=== PATIENT | female | born 1935 | race Caucasian/White ===

== ENCOUNTER 2016-04-14 14:46 | Inpatient (IN) | payer MEDICARE, OTHER ==
--- NOTE | 2016-04-14 15:04 | ER Document Report ---
ED Medical Screen (RME) - General Stated Complaint: BACK/HEAD PAIN FALL Notes: 80 yo female c/o fall, head injury. fell at home. does not remember fall. unsure of mechanism of injury. 10am last known normal. pt is confused today. abrasion to right forehead. denies other injury TRAVEL OUTSIDE OF THE [place] IN LAST 30 DAYS: No - Related Data Allergies/Adverse Reactions: No Known Allergies Allergy (Verified 03/08/16 13:09) Past Medical History - Past Medical History Cardiac Medical History: Reports: Hx Hypercholesterolemia, Hx Hypertension Pulmonary Medical History: Reports: Hx Asthma, Hx COPD Endocrine Medical History: Reports: Hx Hypothyroidism Musculoskeltal Medical History: Reports Hx Arthritis Past Surgical History: Reports: Hx Abdominal Surgery, Hx Appendectomy, Hx Lumpectomy - left breast, Hx Orthopedic Surgery - back surgery x4 - Immunizations Hx Diphtheria, Pertussis, Tetanus Vaccination: Yes
[2016-04-14 17:33] LABS: ABSOLUTE EOSINOPHILS # (AUTO) 0.1 10^3/uL (0.0-0.6); ABSOLUTE LYMPHOCYTES (AUTO) 1.1 10^3/uL (0.5-4.7); ABSOLUTE MONOCYTES (AUTO) 0.7 10^3/uL (0.1-1.4); ABSOLUTE NEUT (AUTO) 7.2 10^3/uL (1.7-8.2); BASOPHILS % (AUTO) 0.2 % (0-2); HEMATOCRIT 35.9 % (36.0-47.0); HGB HCT DIFFERENCE 0.1; LYMPHOCYTES % (AUTO) 12.5 % (13-45); MEAN CORPUSCULAR HEMOGLOBIN 30.1 pg (27.0-33.4); MEAN CORPUSCULAR HGB CONC 33.3 g/dL (32.0-36.0); MEAN CORPUSCULAR VOLUME 90 fl (80-97); MONOCYTES % (AUTO) 7.4 % (3-13); RED BLOOD COUNT 3.98 10^6/uL (3.72-5.28); RED CELL DISTRIBUTION WIDTH 15.7 % (11.5-14.0); SEGMENTED NEUTROPHILS % (AUTO) 78.9 % (42-78); WHITE BLOOD COUNT 9.2 10^3/uL (4.0-10.5)
[2016-04-14 17:52] LABS: ALANINE AMINOTRANSFERASE 32 U/L (9-52); ALBUMIN 3.9 g/dL (3.5-5.0); ALKALINE PHOSPHATASE 91 U/L (38-126); ANION GAP 10 (5-19); ASPARTATE AMINO TRANSFERASE 48 U/L (14-36); BILIRUBIN,TOTAL 0.6 mg/dL (0.2-1.3); BLOOD UREA NITROGEN 26 mg/dL (7-20); CALCIUM 10.1 mg/dL (8.4-10.2); CARBON DIOXIDE 30 mmol/L (22-30); CHLORIDE 103 mmol/L (98-107); CREATINE KINASE 1047 U/L (30-135); CREATININE RESULT 1.37 mg/dL (0.52-1.25); GLUCOSE 104 mg/dL (75-110); POTASSIUM 4.1 mmol/L (3.6-5.0); SODIUM 143.2 mmol/L (137-145); TOTAL PROTEIN 7.5 g/dL (6.3-8.2)
[2016-04-14 17:57] LABS: CREATINE KINASE MB 11.5 ng/mL (<4.55); TROPONIN I 0.024 ng/mL
[2016-04-14 19:25] LABS: APPEARANCE,URINE SLIGHTLY-CLOUDY; BILIRUBIN,URINE NEGATIVE (NEGATIVE); GLUCOSE, URINE NEGATIVE (NEGATIVE); KETONES,URINE NEGATIVE (NEGATIVE); LEUKOCYTE ESTERASE,URINE SMALL (NEGATIVE); NITRITE,URINE NEGATIVE (NEGATIVE); PROTEIN,URINE 30 mg/dL (NEGATIVE); URINE SPECIFIC GRAVITY 1.011; UROBILINOGEN,URINE NEGATIVE mg/dL (<2.0)
--- NOTE | 2016-04-14 19:45 | ER Document Report ---
ED Fall - General Chief Complaint: Head Injury Stated Complaint: BACK/HEAD PAIN FALL Time seen by provider: 19:40 Notes: Patient is a 80-year-old female that comes emergency department for chief complaint of fall, patient does not remember falling, she remembers getting up off the floor and having a small amount of blood on her face/forehead. Family member reports that a 10 AM she was reported to be okay, at 1:30 PM an casting assistant called and reported she had fallen. Patient states she has general body pain but denies any new pains, she is treated with pain management for chronic back pain including 4 mg of Dilaudid multiple times a day. She denies specific chest pain or shortness of breath. She denies fevers. She is not on a blood thinner. She denies history of stroke, heart attack. Patient smokes, has COPD, hypertension, hyperlipidemia. Patient lives with her son. TRAVEL OUTSIDE OF THE [place] IN LAST 30 DAYS: No - Related data Allergies/Adverse Reactions: No Known Allergies Allergy (Verified 04/14/16 15:09) Home Medications: Current Home Medications Aspirin/Dipyridamole [Aggrenox 25 mg-200 mg Capsule] 1 cap PO Q12 04/14/16 [ History] Baclofen [Baclofen 10 mg Tablet] 10 mg PO Q8 04/14/16 [History] Cyclobenzaprine HCl [Flexeril 10 mg Tablet] 5 mg PO Q8HP PRN 04/14/16 [History] Doxepin HCl [Silenor] 3 mg PO QHS 04/14/16 [History] Hydrochlorothiazide [Hydrodiuril 12.5 mg Capsule] 12.5 mg PO DAILY 04/14/16 [ History] Hydromorphone HCl [Dilaudid] 4 mg PO Q6HP PRN 04/14/16 [History] Lactulose [Constulose 10 gm/15 mL Oral Solution] 30 ml PO QHS 04/14/16 [History] Levothyroxine Sodium [Synthroid 0.15 mg Tablet] 150 mcg PO DAILY 04/14/16 [ History] Lisinopril [Prinivil 10 mg Tablet] 10 mg PO Q12 04/14/16 [History] Nifedipine [Nifedipine ER] 30 mg PO Q12 04/14/16 [History] Thiamine HCl [Vitamin B-1] 100 mg PO DAILY 04/14/16 [History] Past Medical History - General Information source: Patient, Relative - Social History Smoking Status: Current Every Day Smoker Chew tobacco use (# tins/day): No Frequency of alcohol use: None Drug Abuse: None Lives with: Family Family History: None Patient has suicidal ideation: No Patient has homicidal ideation: No - Past Medical History Cardiac Medical History: Reports: Hx Hypercholesterolemia, Hx Hypertension Pulmonary Medical History: Reports: Hx Asthma, Hx COPD Endocrine Medical History: Reports: Hx Hypothyroidism Renal/ Medical History: Denies: Hx Peritoneal Dialysis Musculoskeltal Medical History: Reports Hx Arthritis Past Surgical History: Reports: Hx Abdominal Surgery, Hx Appendectomy, Hx Lumpectomy - left breast, Hx Orthopedic Surgery - back surgery x4 - Immunizations Hx Diphtheria, Pertussis, Tetanus Vaccination: Yes Review of Systems - Review of Systems Constitutional: No symptoms reported EENT: No symptoms reported Cardiovascular: See HPI Respiratory: No symptoms reported Gastrointestinal: No symptoms reported Genitourinary: No symptoms reported Female Genitourinary: No symptoms reported Musculoskeletal: See HPI Skin: See HPI Hematologic/Lymphatic: No symptoms reported Neurological/Psychological: See HPI Physical Exam - Vital signs Vitals: Temp Pulse Resp BP Pulse Ox 98.8 F 110 H 20 153/77 H 96 04/14/16 15:01 04/14/16 15:01 04/14/16 15:01 04/14/16 15:01 04/14/16 15:01 Interpretation: Normal - General General appearance: Appears well, Alert. No: Lethargic, Unresponsive In distress: None - HEENT Head: Ecchymosis - right forehead and superior eyelid contusions Eyes: Normal Conjunctiva: Normal Extraocular movements intact: Yes Eyelashes: Normal Pupils: PERRL Nasal: Normal Mouth/Lips: Normal Mucous membranes: Normal Pharynx: Normal Neck: Normal - Respiratory Respiratory status: No respiratory distress Chest status: Nontender Breath sounds: Normal. No: Decreased air movement, Wheezing Chest palpation: Normal - Cardiovascular Rhythm: Regular, Tachycardia Heart sounds: Normal auscultation, S1 appreciated, S2 appreciated Murmur: No - Abdominal Inspection: Normal Distension: No distension Bowel sounds: Normal Tenderness: Nontender Organomegaly: No organomegaly - Back Back: Normal, Nontender. No: Tender, Vertebra tenderness - Extremities General upper extremity: Normal inspection, Nontender, Normal ROM, Normal strength General lower extremity: Normal inspection, Nontender, Normal ROM, Normal strength - Neurological Neuro grossly intact: Yes Cognition: Normal Orientation: AAOx4 Joshua Coma Scale Eye Opening: Spontaneous Joshua Coma Scale Verbal: Oriented Joshua Coma Scale Motor: Obeys Commands Cheyanne Coma Scale Total: 15 Speech: Normal Cranial nerves: Normal Cerebellar coordination: Gait ataxia. 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 Patient has a hematoma/contusion on her right forehead, no other signs of injury, no neck pain. Creatinine and GFR are abnormal, not in patient's baseline, CK is also elevated , giving IV fluids. Urine shows white blood cells, leukocyte esterase, patient denies any urinary symptoms, culture placed. Patient mildly tachycardic, could be from opiate withdrawals, she is on high doses and she has not had any since this morning. CT of the head shows hematoma and old lacunar, infarct. Other than unsteadiness on her feet I do not see any neurological deficits on examination. Will discuss for potential admission for workup of possible stroke, unsteadiness on her feet, acute renal insufficiency, suspected rhabdomyolysis. Discussed with Dr. Goldsmith. Discussed with Dr. Reynoso, he will admit to the hospital. - Vital Signs Vital signs: Temp Pulse Resp BP Pulse Ox 98.4 F 81 20 139/68 H 99 04/15/16 04:31 04/15/16 04:31 04/15/16 04:31 04/15/16 04:31 04/15/16 04:31 - Laboratory Result Diagrams: 04/14/16 16:45 04/14/16 16:45 Laboratory results interpreted by me: 04/14/16 04/14/16 04/14/16 16:45 16:45 16:45 Hct 35.9 L RDW 15.7 H Seg Neutrophils % 78.9 H Lymphocytes % 12.5 L BUN 26 H Creatinine 1.37 H Est GFR ( Amer) 45 L Est GFR (Non-Af Amer) 37 L AST 48 H Creatine Kinase 1047 H CK-MB (CK-2) 11.50 H Urine Protein Urine Blood Ur Leukocyte Esterase 04/14/16 18:10 Hct RDW Seg Neutrophils % Lymphocytes % BUN Creatinine Est GFR ( Amer) Est GFR (Non-Af Amer) AST Creatine Kinase CK-MB (CK-2) Urine Protein 30 H Urine Blood MODERATE H Ur Leukocyte Esterase SMALL H Discharge - Discharge Clinical Impression: Imbalance, Elevated creatine kinase, Acute renal insufficiency, Thalamic infarction Fall Qualifiers: Encounter type: initial encounter Qualified Code(s): W19.XXXA - Unspecified fall, initial encounter Scalp hematoma Qualifiers: Encounter type: initial encounter Qualified Code(s): S00.03XA - Contusion of scalp, initial encounter Condition: Stable Disposition: ADMITTED INPATIENT Admitting Provider: Hospitalist - Dr. Reynoso Unit Admitted: Telemetry
[2016-04-14] MEDS ORDERED: NORMAL SALINE 1000 ML 1,000 ML IV ONE (19:47)
[2016-04-14] MEDS ORDERED: OXYCODONE-ACETAMINOPHEN 5-325 MG TABLET PO PRN (20:00)
[2016-04-14] MEDS ORDERED: CYCLOBENZAPRINE HCL 10 MG TABLET PO PRN (20:00)
[2016-04-14] MEDS ORDERED: HYDROMORPHONE HCL 2 MG TABLET PO PRN (20:02)
[2016-04-14] MEDS ORDERED: ATORVASTATIN CALCIUM 80 MG TABLET PO ONE (20:02)
[2016-04-14] MEDS ORDERED: DOCUSATE SODIUM 100 MG CAPSULE PO PRN (20:02)
[2016-04-14] MEDS ORDERED: MAGNESIUM HYDROXIDE SUSP 30 ML UDCUP PO PRN (20:02)
[2016-04-14] MEDS ORDERED: IPRATROPIUM/ALBUTEROL 0.5-2.5 MG/3 ML AMPUL NEB PRN (20:08)
[2016-04-14] MEDS ORDERED: HYDRALAZINE HCL INJ/PF 20 MG/1 ML SDV IV PRN (20:08)
[2016-04-14] MEDS ORDERED: BACLOFEN 10 MG TABLET PO PRN (21:57)
[2016-04-14] MEDS ORDERED: LORAZEPAM INJ 2 MG/1 ML VIAL IV ONE (23:21)
[2016-04-14] MEDS ORDERED: LORAZEPAM INJ 2 MG/1 ML VIAL ONE (23:59)
[2016-04-15] MEDS: NIFEDIPINE 30 MG TAB.ER.24 PO SCH ×3 (00:08→22:21)
[2016-04-15] MEDS: ASPIRIN/DIPYRIDAMOLE 25-200 MG 1 CAP.SR CPMP.12HR PO SCH ×3 (00:08→22:19)
[2016-04-15] MEDS: LISINOPRIL 10 MG TABLET PO SCH ×3 (00:09→22:20)
[2016-04-15] MEDS: HEPARIN SOD (PORCINE) 5,000 UNIT/ML 1 ML SYRINGE SUBCUT SCH ×3 (00:13→14:16)
[2016-04-15] MEDS: LACTULOSE SYRUP 20 GM/30 ML UDCUP PO SCH ×2 (00:14→22:21)
[2016-04-15 00:53] LABS: CREATINE KINASE MB 5.59 ng/mL (<4.55); TROPONIN I 0.018 ng/mL
[2016-04-15] MEDS: NORMAL SALINE 1000 ML 1,000 ML IV SCH ×2 (00:58→05:37)
[2016-04-15] MEDS ORDERED: ATORVASTATIN CALCIUM 80 MG TABLET PO ONE (01:30)
[2016-04-15] MEDS: LANSOPRAZOLE 30 MG TAB.RAP.DR PO SCH ×2 (05:44→18:03)
[2016-04-15] MEDS: LEVOTHYROXINE SODIUM 0.15 MG TABLET PO SCH (05:44)
[2016-04-15] MEDS ORDERED: OXYCODONE-ACETAMINOPHEN 5-325 MG TABLET PO PRN (07:07)
[2016-04-15] MEDS ORDERED: HYDROMORPHONE HCL 2 MG TABLET PO PRN (07:08)
[2016-04-15 07:17] LABS: ABSOLUTE EOSINOPHILS # (AUTO) 0.1 10^3/uL (0.0-0.6); ABSOLUTE LYMPHOCYTES (AUTO) 1.1 10^3/uL (0.5-4.7); ABSOLUTE MONOCYTES (AUTO) 0.5 10^3/uL (0.1-1.4); ABSOLUTE NEUT (AUTO) 4.7 10^3/uL (1.7-8.2); BASOPHILS % (AUTO) 0.7 % (0-2); EOSINOPHILS % (AUTO) 1.4 % (0-6); HEMATOCRIT 31.6 % (36.0-47.0); HEMOGLOBIN 10.7 g/dL (12.0-15.5); HGB HCT DIFFERENCE 0.5; LYMPHOCYTES % (AUTO) 17.7 % (13-45); MEAN CORPUSCULAR HEMOGLOBIN 30.8 pg (27.0-33.4); MEAN CORPUSCULAR HGB CONC 33.7 g/dL (32.0-36.0); MEAN CORPUSCULAR VOLUME 91 fl (80-97); MONOCYTES % (AUTO) 6.9 % (3-13); RED BLOOD COUNT 3.46 10^6/uL (3.72-5.28); RED CELL DISTRIBUTION WIDTH 15.7 % (11.5-14.0); SEGMENTED NEUTROPHILS % (AUTO) 73.3 % (42-78); WHITE BLOOD COUNT 6.5 10^3/uL (4.0-10.5)
--- NOTE | 2016-04-15 07:35 | PDOC H&P ---
History of Present Illness Admission Date/PCP: 04/14/16 20:03 NO LOCALMD Patient complains of: Fall History of Present Illness: AR IBANEZ is a 80 year old female with a past medical history of COPD, hypertension chronic pain and adjustment disorder following the of her spouse 2 weeks ago. Who had been her usual state of health until approximately 10:30 AM sustained a fall to the floor at home. Patient is not recall the event denies preceding headache palpitations chest pain or shortness of breath though had recently taken her home medications which include doxepin baclofen Flexeril and Dilaudid 4 mg every 4 hours when necessary. In the emergency room she's found to have a large right sided facial ecchymosis with scalp hematoma without laceration, CT shows a small left-sided old lacunar infarct, and rhabdomyolysis. She's referred to the hospitalist for admission Past Medical History Cardiac Medical History: Reports: Hyperlipidema, Hypertension Pulmonary Medical History: Reports: Asthma, Chronic Obstructive Pulmonary Disease (COPD) Endocrine Medical History: Reports: Hypothyroidism Musculoskeltal Medical History: Reports: Arthritis Psychiatric Medical History: Reports: Other - Adjustment disorder with grief Past Surgical History Past Surgical History: Reports: Appendectomy, Orthopedic Surgery - back surgery x4 Social History Information Source: Patient, Relative Lives with: Family Smoking Status: Current Every Day Smoker Cigarettes Packs Per Day: 2 Frequency of Alcohol Use: None Hx Recreational Drug Use: No Drugs: None Hx Prescription Drug Abuse: No - Advance Directive Resuscitation Status: Full Code Family History Family History: COPD Parental Family History Reviewed: Yes Children Family History Reviewed: Yes Sibling(s) Family History Reviewed.: Yes Medication/Allergy Home Medications: Aspirin/Dipyridamole [Aggrenox 25 mg-200 mg Capsule] 1 cap PO Q12 04/14/16 Baclofen [Baclofen 10 mg Tablet] 10 mg PO Q8 04/14/16 Cyclobenzaprine HCl [Flexeril 10 mg Tablet] 5 mg PO Q8HP PRN 04/14/16 Doxepin HCl [Silenor] 3 mg PO QHS 04/14/16 Hydrochlorothiazide [Hydrodiuril 12.5 mg Capsule] 12.5 mg PO DAILY 04/14/16 Hydromorphone HCl [Dilaudid] 4 mg PO Q6HP PRN 04/14/16 Lactulose [Constulose 10 gm/15 mL Oral Solution] 30 ml PO QHS 04/14/16 Levothyroxine Sodium [Synthroid 0.15 mg Tablet] 150 mcg PO DAILY 04/14/16 Lisinopril [Prinivil 10 mg Tablet] 10 mg PO Q12 04/14/16 Nifedipine [Nifedipine ER] 30 mg PO Q12 04/14/16 Thiamine HCl [Vitamin B-1] 100 mg PO DAILY 04/14/16 Allergies/Adverse Reactions: No Known Allergies Allergy (Verified 04/14/16 15:09) Review of Systems Constitutional: ABSENT: chills, fever(s), headache(s), weight gain, weight loss Eyes: ABSENT: visual disturbances Ears: ABSENT: hearing changes Cardiovascular: ABSENT: chest pain, dyspnea on exertion, edema, orthropnea, palpitations Respiratory: ABSENT: cough, hemoptysis Gastrointestinal: ABSENT: abdominal pain, constipation, diarrhea, hematemesis, hematochezia, nausea, vomiting Genitourinary: ABSENT: dysuria, hematuria Musculoskeletal: ABSENT: joint swelling Integumentary: ABSENT: rash, wounds Neurological: ABSENT: abnormal gait, abnormal speech, confusion, dizziness, focal weakness, syncope Psychiatric: PRESENT: anxiety, depression. ABSENT: homidical ideation, suicidal ideation Endocrine: ABSENT: cold intolerance, heat intolerance, polydipsia, polyuria Hematologic/Lymphatic: ABSENT: easy bleeding, easy bruising Physical Exam Vital Signs: Temp Pulse Resp BP Pulse Ox 98.4 F 81 20 139/68 H 99 04/15/16 04:31 04/15/16 04:31 04/15/16 04:31 04/15/16 04:31 04/15/16 04:31 Intake & Output 04/13/16 04/14/16 04/15/16 11:59 11:59 11:59 Intake Total 1400 Output Total 100 Balance 1300 Weight 44.8 kg General appearance: PRESENT: cooperative, disheveled, thin Head exam: PRESENT: normocephalic, other - Large right scalp hematoma with right -sided facial and periorbital ecchymosis. ABSENT: atraumatic Eye exam: PRESENT: conjunctiva pink, EOMI, PERRLA. ABSENT: scleral icterus Mouth exam: PRESENT: moist, tongue midline Neck exam: ABSENT: carotid bruit, JVD, lymphadenopathy, thyromegaly Respiratory exam: PRESENT: clear to auscultation subha. ABSENT: rales, rhonchi, wheezes Cardiovascular exam: PRESENT: RRR. ABSENT: diastolic murmur, rubs, systolic murmur Pulses: PRESENT: normal dorsalis pedis pul Vascular exam: PRESENT: normal capillary refill GI/Abdominal exam: PRESENT: hypoactive bowel sounds, soft. ABSENT: distended, guarding, mass, normal bowel sounds, organolmegaly, rebound, tenderness Rectal exam: PRESENT: deferred Extremities exam: PRESENT: full ROM. ABSENT: calf tenderness, clubbing, pedal edema Neurological exam: PRESENT: alert, altered Psychiatric exam: PRESENT: depressed, unusual affect. ABSENT: homicidal ideation, suicidal ideation Focused psych exam: ABSENT: catatonic, delusional, euphoric, flight of ideas Skin exam: PRESENT: other - Right-sided scalp hematoma right periorbital and facial ecchymosis Results Laboratory Results: 04/15/16 04/15/16 00:16 00:16 Creatine Kinase 791 H CK-MB (CK-2) 5.59 H Troponin I 0.018 Impressions: Head CT 04/14/16 15:04 IMPRESSION: Right frontal scalp hematoma without underlying skull fracture or acute intracranial hemorrhage. 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 Head MRI 04/14/16 20:05 IMPRESSION: ATROPHY AND CHRONIC MICRO-VASCULAR ISCHEMIC CHANGES. OTHERWISE NORMAL MRI OF THE BRAIN WITHOUT INTRAVENOUS GADOLINIUM CONTRAST. Assessment & Plan - Diagnosis (1) Fall Qualifiers: Encounter type: initial encounter Qualified Code(s): W19.XXXA - Unspecified fall, initial encounter Plan: Likely secondary to polypharmacy however CT head imaging 1 month ago after a fall did not show old left lacunar infarct, she is placed on aspirin with Lipitor, orthostatic blood pressures and physical and occupational therapy consultation is ordered (2) Rhabdomyolysis Is this a current diagnosis for this admission?: YesPlan: Secondary to fall patient was positioned down for several hours she received gentle IV fluids reevaluation of total CK (3) Polypharmacy Is this a current diagnosis for this admission?: YesPlan: Patient with history of recent fall 1 month ago and multiple medications increasing risk including large dose of Dilaudid, doxepin with baclofen. Doxepin held Dilaudid weaning strongly suggested given recent spontaneous falls. - Time Time Spent: 50 to 70 Minutes
[2016-04-15 07:36] LABS: ANION GAP 9 (5-19); BLOOD UREA NITROGEN 20 mg/dL (7-20); CALCIUM 9.2 mg/dL (8.4-10.2); CARBON DIOXIDE 25 mmol/L (22-30); CHLORIDE 110 mmol/L (98-107); CHOLESTEROL 165.22 mg/dL (0-200); CREATININE RESULT 1.04 mg/dL (0.52-1.25); Direct HDL 41 mg/dL (>40); GLUCOSE 83 mg/dL (75-110); POTASSIUM 4.1 mmol/L (3.6-5.0); SODIUM 143.5 mmol/L (137-145); TRIGLYCERIDES 149 mg/dL (<150)
[2016-04-15 07:46] LABS: DIRECT LDL 94 mg/dL (<100)
[2016-04-15 07:48] LABS: CREATINE KINASE MB 3.69 ng/mL (<4.55); TROPONIN I 0.018 ng/mL
--- NOTE | 2016-04-15 11:22 | EKG REPORT ---
SEVERITY:- OTHERWISE NORMAL ECG - SINUS TACHYCARDIA VENTRICULAR PREMATURE COMPLEX : Confirmed by: Jenn Ta 15-Apr-2016 11:21:32
[2016-04-15 13:49] LABS: CREATINE KINASE MB 2.52 ng/mL (<4.55)
[2016-04-15 13:51] LABS: TROPONIN I < 0.012 ng/mL
[2016-04-15] MEDS: HYDROMORPHONE HCL 2 MG TABLET PO PRN ×2 (14:14→22:20)
--- NOTE | 2016-04-15 16:13 | PDOC PROGRESS REPORT ---
Subjective Progress Note for:: 04/15/16 Subjective:: Patient is alert awake complaining of dysuria She is a low-grade fever She has no chest pain no palpitations no headache lightheadedness Mentation is excellent She has large ecchymosis on the right periorbital area and right forehead Physical Exam Vital Signs: Temp Pulse Resp BP Pulse Ox 99.0 F 89 20 138/69 H 98 04/15/16 11:28 04/15/16 11:28 04/15/16 11:28 04/15/16 11:28 04/15/16 11:28 Intake & Output 04/14/16 04/15/16 04/16/16 00:59 00:59 00:59 Intake Total 0 1500 Output Total 100 0 Balance -100 1500 Weight 43.8 kg 44.8 kg General appearance: PRESENT: no acute distress Head exam: PRESENT: other - Ecchymosis right periorbital area ,right forehead Eye exam: PRESENT: conjunctiva pink, EOMI, PERRLA. ABSENT: scleral icterus Respiratory exam: PRESENT: clear to auscultation subha. ABSENT: rales, rhonchi, wheezes Cardiovascular exam: PRESENT: RRR. ABSENT: diastolic murmur, rubs, systolic murmur GI/Abdominal exam: PRESENT: normal bowel sounds, soft. ABSENT: distended, guarding, mass, organolmegaly, rebound, tenderness Extremities exam: PRESENT: full ROM. ABSENT: calf tenderness, clubbing, pedal edema Neurological exam: PRESENT: alert, awake, oriented to person, oriented to place , oriented to time, oriented to situation, CN II-XII grossly intact. ABSENT: motor sensory deficit Psychiatric exam: PRESENT: appropriate affect, normal mood. ABSENT: homicidal ideation, suicidal ideation Results Laboratory Results: 04/15/16 06:36 04/15/16 06:36 04/15/16 04/15/16 06:36 06:36 WBC 6.5 RBC 3.46 L Hgb 10.7 L Hct 31.6 L MCV 91 MCH 30.8 MCHC 33.7 RDW 15.7 H Plt Count 313 Seg Neutrophils % 73.3 Lymphocytes % 17.7 Monocytes % 6.9 Eosinophils % 1.4 Basophils % 0.7 Absolute Neutrophils 4.7 Absolute Lymphocytes 1.1 Absolute Monocytes 0.5 Absolute Eosinophils 0.1 Absolute Basophils 0.0 Sodium 143.5 Potassium 4.1 Chloride 110 H Carbon Dioxide 25 Anion Gap 9 BUN 20 Creatinine 1.04 Est GFR ( Amer) > 60 Est GFR (Non-Af Amer) 51 L Glucose 83 Calcium 9.2 Triglycerides 149 Cholesterol 165.22 LDL Cholesterol Direct 94 VLDL Cholesterol 30.0 HDL Cholesterol 41 04/15/16 04/15/16 04/15/16 00:16 00:16 06:36 Creatine Kinase 791 H 549 H CK-MB (CK-2) 5.59 H Troponin I 0.018 04/15/16 04/15/16 04/15/16 06:36 12:55 12:55 Creatine Kinase 463 H CK-MB (CK-2) 3.69 2.52 Troponin I 0.018 < 0.012 EKG Comments: Monitor sinus tachycardia 95. Impressions: Head CT 04/14/16 15:04 IMPRESSION: Right frontal scalp hematoma without underlying skull fracture or acute intracranial hemorrhage. 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 Head MRI 04/14/16 20:05 IMPRESSION: ATROPHY AND CHRONIC MICRO-VASCULAR ISCHEMIC CHANGES. OTHERWISE NORMAL MRI OF THE BRAIN WITHOUT INTRAVENOUS GADOLINIUM CONTRAST. Assessment & Plan - Diagnosis (1) Head injury Qualifiers: Encounter type: initial encounter Qualified Code(s): S09.90XA - Unspecified injury of head, initial encounter Is this a current diagnosis for this admission?: YesPlan: Initial CT of the head , MRI of the head ESSENTIALLY negative Mentation is excellent Continue neurochecks (2) Polypharmacy Is this a current diagnosis for this admission?: YesPlan: Spoke at length with family Daughter states pain medications are ordered by pain management and this should not be decreased Continue patient's present regimen We will refer her to pain management We feel very strongly that patient is over medicated with opiates (3) Rhabdomyolysis Is this a current diagnosis for this admission?: YesPlan: CPK improving continue hydration (4) Syncope and collapse Is this a current diagnosis for this admission?: YesPlan: Syncope episode without warning Patient may have had a vasovagal episode and orthostatic hypotension We will check orthostatic blood pressure every shift Continue hydration Continue workup Patient will need an outpatient event monitor after discharge (5) UTI (urinary tract infection) Qualifiers: Urinary tract infection type: site unspecified Is this a current diagnosis for this admission?: YesPlan: Patient was complaining of dysuria Urine has a few cells We will treat empirically for UTI with ceftriaxone - Time Time Spent with patient: 25-34 minutes
[2016-04-15] MEDS ORDERED: CEFTRIAXONE 1 GM/D5W RTU 1 GM/50 ML RTUPB IV ONE (17:00)
--- NOTE | 2016-04-15 20:30 | XCELERA REPORT ---
[address] [address] Transthoracic Echocardiogram Report Name: AR IBANEZ Age: 80 yrs Gender: Female : 1935 Patient Status: Inpatient Patient Location: [id number]\321\[id number] Study Date: 04/15/2016 09:38 AM Height: 61 in Weight: 98 lb BSA: 1.4 m2 Reason For Study: cva Ordering Physician: NOAH BRYSON Performed By: Tisha Zendejas Interpretation Summary AV sclerosis but valve configuration not certain due to poor imaging. Peak AV velocity is increased, peak gradient 18 mm Hg. likely very mild , no AR. Mitral annular calcification, no MS, no MVP, no MR. No good evidence of L sided cardiogenic emboli. LV hyperdtynamic, min. LVH, LVEF 65% or better, stage I LV diastolic dysfunction. Possible basal lateral hypokinesis. Mild pulm hypertension, RVSP 39 mm Hg. MMode/2D Measurements \T\ Calculations RVDd: 2.0 cm LVIDd: 3.9 cm FS: 28.8 % Ao root diam: IVSd: 0.89 cm LVIDs: 2.8 cm EDV(Teich): 67.8 ml 2.8 cm LVPWd: 0.87 cm ESV(Teich): 29.8 ml Ao root area: EF(Teich): 56.0 % 6.2 cm2 LA dimension: 2.9 cm LVOT diam: LVLd ap4: 7.6 cm SV(MOD-sp4): 30.0 ml 2.0 cm EDV(MOD-sp4): LA A2Cs: 20.3 cm2 LVOT area: 56.0 ml LVLs ap4: 6.3 cm 3.2 cm2 ESV(MOD-sp4): 26.0 ml EF(MOD-sp4): 53.6 % LA A4Cs: LA length: 5.2 cm LA Vol Index (BP): LA Volume: 61.2 ml 18.5 cm2 43.8 ml/m2 Doppler Measurements \T\ Calculations MV E max jannette: MV P1/2t max jannette: Ao V2 max: LV V1 max P.7 cm/sec 93.2 cm/sec 211.8 cm/sec 6.0 mmHg MV A max jannette: MV P1/2t: 52.4 msec Ao max PG: LV V1 max: 114.1 cm/sec MVA(P1/2t): 4.2 cm2 17.9 mmHg 122.3 cm/sec MV E/A: 0.81 MV dec slope: ASA(V,D): 1.8 cm2 521.3 cm/sec2 MV dec time: 0.17 sec PA V2 max: TR max jannette: 138.7 cm/sec 269.5 cm/sec PA max P.7 mmHgTR max P.1 mmHg Left Ventricle The left ventricle is grossly normal size. The left ventricular ejection fraction is normal. LV EF is 65%. Doppler measurements suggest impaired left ventricular relaxation, which is associated with grade I/IV or mild diastolic dysfunction. Not all wall segments were well visualized. There is proximal lateral wall moderate hypokinesis. There is no thrombus. Right Ventricle The right ventricle is normal in size, thickness and function. Atria The right atrium is normal. The left atrial size is normal. The interatrial septum is intact with no evidence for an atrial septal defect. Mitral Valve There is mild to moderate mitral annular calcification. There is no evidence of mitral valve prolapse. There is no mitral valve stenosis. There is no mitral regurgitation noted. Aortic Valve The aortic valve opens well. The aortic valve is sclerotic and shows some degree of functional abnormality. The aortic valve is not well visualized secondary to technical limitations. Cannot exclude aortic valvular vegetation. There is a peak gradient of 18 mm of Hg. No aortic regurgitation is present. Tricuspid Valve There is no tricuspid stenosis. There is a mild amount of tricuspid regurgitation. There is mild pulmonary hypertension by echo. Right ventricular systolic pressure is estimated to be elevated at 30-40mmHg. Pulmonic Valve The pulmonic valve is not well visualized. There is no pulmonic valvular regurgitation. Effusions There is no pericardial effusion. I WMSI = 1.06 % Normal = 94 Segments Size X - Cannot 1 - Normal 2 - 3 - Akinetic4 - 1-2 small Interpret Hypokinetic Dyskinetic 3-5 moderate 5 - 6-14 large Aneurysmal 15-16 diffuse : NOAH BRYSON > Nasir Rubin
[2016-04-15] MEDS ORDERED: Doxepin Hcl [Silenor] 3 MG PO SCH (22:00)
[2016-04-15] MEDS ORDERED: (PENDING PHARMACY ID) (Doxepin Hcl [Silenor] 3 MG) PO SCH (22:00)
[2016-04-15] MEDS: PHENAZOPYRIDINE HCL 200 MG TABLET PO SCH (22:20)
[2016-04-15 23:05] LABS: APPEARANCE,URINE CLEAR; BILIRUBIN,URINE NEGATIVE (NEGATIVE); GLUCOSE, URINE NEGATIVE (NEGATIVE); KETONES,URINE TRACE mg/dL (NEGATIVE); LEUKOCYTE ESTERASE,URINE SMALL (NEGATIVE); NITRITE,URINE NEGATIVE (NEGATIVE); PROTEIN,URINE NEGATIVE (NEGATIVE); UROBILINOGEN,URINE NEGATIVE mg/dL (<2.0)
[2016-04-16 04:56] LABS: ABSOLUTE EOSINOPHILS # (AUTO) 0.1 10^3/uL (0.0-0.6); ABSOLUTE LYMPHOCYTES (AUTO) 1.3 10^3/uL (0.5-4.7); ABSOLUTE MONOCYTES (AUTO) 0.5 10^3/uL (0.1-1.4); ABSOLUTE NEUT (AUTO) 4.4 10^3/uL (1.7-8.2); BASOPHILS % (AUTO) 0.6 % (0-2); EOSINOPHILS % (AUTO) 1.9 % (0-6); HEMATOCRIT 30.6 % (36.0-47.0); HEMOGLOBIN 10.4 g/dL (12.0-15.5); HGB HCT DIFFERENCE 0.6; LYMPHOCYTES % (AUTO) 20.9 % (13-45); MEAN CORPUSCULAR HEMOGLOBIN 30.8 pg (27.0-33.4); MEAN CORPUSCULAR HGB CONC 33.9 g/dL (32.0-36.0); MEAN CORPUSCULAR VOLUME 91 fl (80-97); MONOCYTES % (AUTO) 7.9 % (3-13); RED BLOOD COUNT 3.36 10^6/uL (3.72-5.28); RED CELL DISTRIBUTION WIDTH 15.5 % (11.5-14.0); SEGMENTED NEUTROPHILS % (AUTO) 68.7 % (42-78); WHITE BLOOD COUNT 6.4 10^3/uL (4.0-10.5)
[2016-04-16 05:15] LABS: ANION GAP 10 (5-19); BLOOD UREA NITROGEN 17 mg/dL (7-20); CALCIUM 9.8 mg/dL (8.4-10.2); CARBON DIOXIDE 24 mmol/L (22-30); CHLORIDE 110 mmol/L (98-107); CREATININE RESULT 0.93 mg/dL (0.52-1.25); GLUCOSE 88 mg/dL (75-110); POTASSIUM 3.9 mmol/L (3.6-5.0); SODIUM 143.7 mmol/L (137-145)
[2016-04-16] MEDS: HYDROMORPHONE HCL 2 MG TABLET PO PRN (05:15)
[2016-04-16] MEDS: PHENAZOPYRIDINE HCL 200 MG TABLET PO SCH (05:15)
[2016-04-16] MEDS: LANSOPRAZOLE 30 MG TAB.RAP.DR PO SCH (05:15)
[2016-04-16] MEDS: LEVOTHYROXINE SODIUM 0.15 MG TABLET PO SCH (05:16)
[2016-04-16] MEDS ORDERED: THIAMINE HCL 100 MG TABLET PO SCH (10:00)
[2016-04-16] MEDS ORDERED: LEVOTHYROXINE SODIUM 0.15 MG TABLET PO SCH (10:00)
[2016-04-16] MEDS ORDERED: CEFTRIAXONE 1 GM/D5W RTU 1 GM/50 ML RTUPB IV SCH (10:00)
[2016-04-16] MEDS ORDERED: HYDROMORPHONE HCL 2 MG TABLET PO PRN (10:09)
[2016-04-16] MEDS: LISINOPRIL 10 MG TABLET PO SCH (10:09)
[2016-04-16] MEDS: NIFEDIPINE 30 MG TAB.ER.24 PO SCH (10:09)
[2016-04-16] MEDS: ASPIRIN/DIPYRIDAMOLE 25-200 MG 1 CAP.SR CPMP.12HR PO SCH (10:09)
[2016-04-16 11:58] VITALS: BP 131/51
--- NOTE | 2016-04-16 13:01 | PDOC DISCHARGE SUMMARY ---
General - Admit/Disc Date/PCP Admission Date/Primary Care Provider: 04/14/16 20:03 NO LOCALMD Discharge Date: 04/16/16 - Discharge Diagnosis (1) Head injury Is this a current diagnosis for this admission?: YesSummary: Patient had a syncopal episode and significant head injury She presented to the ED with frontal and periorbital ecchymosis CT of the head was negative for intracranial bleed Mentation remained excellent She had no recollection of the event was alert and oriented and able to ambulate during her short hospitalization (2) Polypharmacy Is this a current diagnosis for this admission?: YesSummary: Patient is treated by pain management and she is on 4 mg every 6 hours as needed of Dilaudid Suggested to her daughter at the dosage of Dilaudid be cut in half as it is quite a high dose for this frail thin elderly female And we do believe that opiates may have contributed to the syncopal episode and transient hypotension (3) Rhabdomyolysis Is this a current diagnosis for this admission?: YesSummary: CPK was over thousand on admission it is in the 400 range at discharge Patient was treated with intravenous hydration (4) Syncope and collapse Is this a current diagnosis for this admission?: YesSummary: Likely secondary to orthostatic hypotension patient may have been somewhat dehydrated She also had evidence of urinary tract infection Orthostatic blood pressures were within normal range while in the MICU unit We discontinued hydrochlorothiazide Patient to benefit from an event monitor as an outpatient (5) UTI (urinary tract infection) Is this a current diagnosis for this admission?: YesSummary: Urine culture was positive for gram-positive cocci Identification sensitivity pending at time of discharge We will discharge the patient on Keflex by mouth - Additional Information Resuscitation Status: Full Code Discharge Diet: As Tolerated Discharge Activity: Activity As Tolerated Home Medications: Aspirin/Dipyridamole [Aggrenox 25 mg-200 mg Capsule] 1 cap PO Q12 04/14/16 Baclofen [Baclofen 10 mg Tablet] 10 mg PO Q8 04/14/16 Cyclobenzaprine HCl [Flexeril 10 mg Tablet] 5 mg PO Q8HP PRN 04/14/16 Doxepin HCl [Silenor] 3 mg PO QHS 04/14/16 Lactulose [Constulose 10 gm/15 mL Oral Solution] 30 ml PO QHS 04/14/16 Levothyroxine Sodium [Synthroid 0.15 mg Tablet] 150 mcg PO DAILY 04/14/16 Lisinopril [Prinivil 10 mg Tablet] 10 mg PO Q12 04/14/16 Nifedipine [Nifedipine ER] 30 mg PO Q12 04/14/16 Thiamine HCl [Vitamin B-1] 100 mg PO DAILY 04/14/16 Hydromorphone HCl [Dilaudid 2 mg Tablet] 2 mg PO Q6HP PRN #30 tablet 04/16/16 History of Present Illness Patient complains of: syncope / head injury History of Present Illness: AR IBANEZ is a 80 year old female with a past medical history of COPD, hypertension chronic pain and adjustment disorder following the of her spouse 2 weeks ago. Who had been her usual state of health until approximately 10:30 AM sustained a fall to the floor at home. Patient is not recall the event denies preceding headache palpitations chest pain or shortness of breath though had recently taken her home medications which include doxepin baclofen Flexeril and Dilaudid 4 mg every 4 hours when necessary. In the emergency room she's found to have a large right sided facial ecchymosis with scalp hematoma without laceration, CT shows a small left-sided old lacunar infarct, and rhabdomyolysis. She's referred to the hospitalist for admission Hospital Course Hospital Course: Patient was admitted after syncopal episode She remained stable There was no evidence of an acute CVA An ultrasound of the abdomen was performed and excluded an abdominal aortic aneurysm Patient was monitored she did not have any arrhythmia and no significant orthostatic hypotension She was discharged with advice of decreasing opiates, and we discontinued hydrochlorothiazide which may have contributed to dehydration and hypotension Physical Exam Vital Signs: Temp Pulse Resp BP Pulse Ox 97.2 F 77 16 131/51 H 100 04/16/16 11:15 04/16/16 11:15 04/16/16 11:15 04/16/16 11:15 04/16/16 11:15 Intake & Output 04/15/16 04/16/16 04/17/16 00:59 00:59 00:59 Intake Total 0 2680 710 Output Total 100 200 600 Balance -100 2480 110 Weight 43.8 kg 44.8 kg 44.4 kg General appearance: PRESENT: no acute distress, thin Head exam: PRESENT: atraumatic, normocephalic Eye exam: PRESENT: conjunctiva pink, EOMI, PERRLA. ABSENT: scleral icterus Ear exam: PRESENT: normal external ear exam Mouth exam: PRESENT: moist, tongue midline Neck exam: ABSENT: carotid bruit, JVD, lymphadenopathy, thyromegaly Respiratory exam: PRESENT: clear to auscultation subha. ABSENT: rales, rhonchi, wheezes Cardiovascular exam: PRESENT: RRR. ABSENT: diastolic murmur, rubs, systolic murmur Pulses: PRESENT: normal dorsalis pedis pul Vascular exam: PRESENT: normal capillary refill GI/Abdominal exam: PRESENT: normal bowel sounds, soft. ABSENT: distended, guarding, mass, organolmegaly, rebound, tenderness Rectal exam: PRESENT: deferred Extremities exam: PRESENT: full ROM. ABSENT: calf tenderness, clubbing, pedal edema Neurological exam: PRESENT: alert, awake, oriented to person, oriented to place , oriented to time, oriented to situation, CN II-XII grossly intact. ABSENT: motor sensory deficit Psychiatric exam: PRESENT: appropriate affect, normal mood. ABSENT: homicidal ideation, suicidal ideation Skin exam: PRESENT: dry, intact, warm. ABSENT: cyanosis, rash Results Laboratory Results: 04/16/16 04:39 04/16/16 04:39 04/15/16 04/16/16 04/16/16 22:30 04:39 04:39 WBC 6.4 RBC 3.36 L Hgb 10.4 L Hct 30.6 L MCV 91 MCH 30.8 MCHC 33.9 RDW 15.5 H Plt Count 285 Seg Neutrophils % 68.7 Lymphocytes % 20.9 Monocytes % 7.9 Eosinophils % 1.9 Basophils % 0.6 Absolute Neutrophils 4.4 Absolute Lymphocytes 1.3 Absolute Monocytes 0.5 Absolute Eosinophils 0.1 Absolute Basophils 0.0 Sodium 143.7 Potassium 3.9 Chloride 110 H Carbon Dioxide 24 Anion Gap 10 BUN 17 Creatinine 0.93 Est GFR ( Amer) > 60 Est GFR (Non-Af Amer) 58 L Glucose 88 Calcium 9.8 Urine Color YELLOW Urine Appearance CLEAR Urine pH 5.0 Ur Specific [place] 1.010 Urine Protein NEGATIVE Urine Glucose (UA) NEGATIVE Urine Ketones TRACE H Urine Blood MODERATE H Urine Nitrite NEGATIVE Ur Leukocyte Esterase SMALL H Urine WBC (Auto) 42 Urine RBC (Auto) 5 04/15/16 04/15/16 04/15/16 00:16 00:16 06:36 Creatine Kinase 791 H 549 H CK-MB (CK-2) 5.59 H Troponin I 0.018 04/15/16 04/15/16 04/15/16 06:36 12:55 12:55 Creatine Kinase 463 H CK-MB (CK-2) 3.69 2.52 Troponin I 0.018 < 0.012 Impressions: Head CT 04/14/16 15:04 IMPRESSION: Right frontal scalp hematoma without underlying skull fracture or acute intracranial hemorrhage. 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 Head MRI 04/14/16 20:05 IMPRESSION: ATROPHY AND CHRONIC MICRO-VASCULAR ISCHEMIC CHANGES. OTHERWISE NORMAL MRI OF THE BRAIN WITHOUT INTRAVENOUS GADOLINIUM CONTRAST. Abdomen Ultrasound 04/16/16 10:08 IMPRESSION: NO ABDOMINAL AORTIC ANEURYSM. Plan Discharge Plan: Patient was referred to primary care physician and configuration analyst for follow-up Time Spent: Less than 30 Minutes
--- NOTE | 2016-04-16 16:36 | Progress Note ---
Provider Note Provider Note: 04/16 16.30 C+S urine : MRSA sens to Bactrim Spoke with patient's daughter Abida will change Rx to Bactrim DS 1 po bid #20 Rx called to [facility]
== END 2016-04-16 14:00 | disposition home or self-care (01) | DRG 558 ==
LOC: ER 14:46 → EH 20:03 → UNDOADMIN 20:09 → EH 20:09 → 3W 23:12
PROVIDERS: ADMIT Internal Medicine; ATTEND Internal Medicine
DX: M62.82 Rhabdomyolysis (principal); N39.0 Urinary tract infection, site not specified; E86.0 Dehydration; I10 Essential (primary) hypertension; S00.83XA Contusion of other part of head, initial encounter; S05.12XA Contusion of eyeball and orbital tissues, left eye, initial encounter; S05.11XA Contusion of eyeball and orbital tissues, right eye, initial encounter; W19.XXXA Unspecified fall, initial encounter; J44.9 Chronic obstructive pulmonary disease, unspecified; G89.29 Other chronic pain; E78.5 Hyperlipidemia, unspecified; F43.20 Adjustment disorder, unspecified; T40.2X5A Adverse effect of other opioids, initial encounter; T50.2X5A Adverse effect of carbonic-anhydrase inhibitors, benzothiadiazides and other diuretics, initial encounter; B95.62 Methicillin resistant Staphylococcus aureus infection as the cause of diseases classified elsewhere; J45.909 Unspecified asthma, uncomplicated; M19.90 Unspecified osteoarthritis, unspecified site; N28.9 Disorder of kidney and ureter, unspecified; I95.9 Hypotension, unspecified; E03.9 Hypothyroidism, unspecified; R55 Syncope and collapse; F17.210 Nicotine dependence, cigarettes, uncomplicated; Z90.49 Acquired absence of other specified parts of digestive tract; Z91.81 History of falling
CPT/HCPCS: 36415; 70450; 70551; 71010; 76706; 80048; 80053; 80061; 81001; 82550; 82553; 83036; 84484; 85025; 87086; 87088; 87186; 93005; 93010; 93306; 99285; G8978-GP; G8979-GP; G8987-GO; G8988-GO; J0696; J1644; J2060; J3490; J7030

== ENCOUNTER → 2016-06-09 | Outpatient (CLI) | payer MEDICARE, OTHER ==
[2016-06-09 11:37] LABS: HEMATOCRIT 31.6 % (36.0-47.0); HEMOGLOBIN 10.7 g/dL (12.0-15.5); HGB HCT DIFFERENCE 0.5; MEAN CORPUSCULAR HEMOGLOBIN 32.7 pg (27.0-33.4); MEAN CORPUSCULAR VOLUME 96 fl (80-97); RED BLOOD COUNT 3.29 10^6/uL (3.72-5.28); RED CELL DISTRIBUTION WIDTH 15.1 % (11.5-14.0); WHITE BLOOD COUNT 7.4 10^3/uL (4.0-10.5)
[2016-06-09 11:55] LABS: ALANINE AMINOTRANSFERASE 19 U/L (9-52); ALBUMIN 4.2 g/dL (3.5-5.0); ALKALINE PHOSPHATASE 68 U/L (38-126); ANION GAP 10 (5-19); ASPARTATE AMINO TRANSFERASE 26 U/L (14-36); BILIRUBIN,DIRECT 0.3 mg/dL (0.0-0.4); BILIRUBIN,TOTAL 0.4 mg/dL (0.2-1.3); BLOOD UREA NITROGEN 23 mg/dL (7-20); CALCIUM 10.3 mg/dL (8.4-10.2); CARBON DIOXIDE 29 mmol/L (22-30); CHLORIDE 104 mmol/L (98-107); CHOLESTEROL 197.29 mg/dL (0-200); CREATININE RESULT 1.47 mg/dL (0.52-1.25); Direct HDL 45 mg/dL (>40); GLUCOSE 94 mg/dL (75-110); MAGNESIUM 2.1 mg/dL (1.6-2.3); POTASSIUM 4.6 mmol/L (3.6-5.0); SODIUM 143.4 mmol/L (137-145); TOTAL PROTEIN 7.2 g/dL (6.3-8.2); TRIGLYCERIDES 162 mg/dL (<150)
[2016-06-09 12:05] LABS: DIRECT LDL 100 mg/dL (<100)
[2016-06-09 12:08] LABS: VLDL CHOLESTEROL 32.4 mg/dL (10-31)
[2016-06-09 12:11] LABS: FREE T3 4.23 pg/mL (2.77-5.27)
[2016-06-09 12:30] LABS: THYROID STIMULATING HORMONE < 0.02 uIU/mL (0.47-4.68)
== END ==
LOC: OD 10:11
PROVIDERS: ATTEND Physician Assistant
DX: R42 Dizziness and giddiness (principal); E03.9 Hypothyroidism, unspecified; Z79.899 Other long term (current) drug therapy
CPT/HCPCS: 36415; 80048; 80061; 80076; 83735; 84439; 84443; 84481; 85027

== ENCOUNTER → 2016-07-27 | Outpatient (CLI) | payer MEDICARE, OTHER ==
[2016-07-27 12:22] LABS: ALANINE AMINOTRANSFERASE 26 U/L (9-52); ALBUMIN 4.2 g/dL (3.5-5.0); ALKALINE PHOSPHATASE 79 U/L (38-126); ASPARTATE AMINO TRANSFERASE 30 U/L (14-36); BILIRUBIN,DIRECT 0.5 mg/dL (0.0-0.4); BILIRUBIN,TOTAL 0.5 mg/dL (0.2-1.3); CHOLESTEROL 141.46 mg/dL (0-200); Direct HDL 61 mg/dL (>40); TOTAL PROTEIN 7.8 g/dL (6.3-8.2); TRIGLYCERIDES 112 mg/dL (<150)
[2016-07-27 12:33] LABS: DIRECT LDL 55 mg/dL (<100)
== END ==
LOC: OD 10:42
PROVIDERS: ATTEND Internal Medicine Cardiovascular Disease
DX: E78.2 Mixed hyperlipidemia (principal); Z79.899 Other long term (current) drug therapy
CPT/HCPCS: 36415; 80061; 80076

== ENCOUNTER → 2016-09-20 | Outpatient (CLI) | payer MEDICARE, OTHER ==
[2016-09-20 11:44] LABS: ANION GAP 10 (5-19); BLOOD UREA NITROGEN 27 mg/dL (7-20); CALCIUM 10.1 mg/dL (8.4-10.2); CARBON DIOXIDE 27 mmol/L (22-30); CHLORIDE 104 mmol/L (98-107); CREATININE RESULT 1.31 mg/dL (0.52-1.25); GLUCOSE 92 mg/dL (75-110); POTASSIUM 4.9 mmol/L (3.6-5.0); SODIUM 140.5 mmol/L (137-145)
== END ==
LOC: OD 10:39
PROVIDERS: ATTEND Internal Medicine Cardiovascular Disease
DX: N18.3 Chronic kidney disease, stage 3 (moderate) (principal)
CPT/HCPCS: 36415; 80048

== ENCOUNTER → 2016-12-13 | Outpatient (CLI) | payer MEDICARE, OTHER ==
--- NOTE | 2016-12-13 15:47 | RADIOLOGY REPORT (SQ) ---
EXAM DESCRIPTION: U/S RETROPERITON (RENAL/AORTA) COMPLETED DATE/TIME: 12/13/2016 3:11 pm REASON FOR STUDY: CHRONIC KIDNEY DISEASE N18.3 CHRONIC KIDNEY DISEASE, STAGE 3 (MODERATE) I12.9 HY PERTENSIVE CHRONIC KIDNEY DISEASE W STG 1-4/UNSP CHR COMPARISON: None. TECHNIQUE: Dynamic and static grayscale images acquired of the kidneys and bladder and recorded on P ACS. Additional selected color Doppler and spectral images recorded. LIMITATIONS: None. FINDINGS: RIGHT KIDNEY: 8.5 cm. Increased cortical echotexture. No hydronephrosis. LEFT KIDNEY: 8.0 cm. Increased cortical echotexture. No hydronephrosis. 1 cm cyst. BLADDER: No masses. OTHER FINDINGS: No other significant finding. IMPRESSION: Medical renal disease. No hydronephrosis. TECHNICAL DOCUMENTATION: JOB ID: [id number] [employer]- All Rights Reserved
== END ==
LOC: RAD 14:41
PROVIDERS: ATTEND Physician Assistant Medical
DX: I12.9 Hypertensive chronic kidney disease with stage 1 through stage 4 chronic kidney disease, or unspecified chronic kidney disease (principal); N18.3 Chronic kidney disease, stage 3 (moderate)
CPT/HCPCS: 76770

== ENCOUNTER → 2016-12-31 | Outpatient (CLI) | payer MEDICARE, OTHER ==
[2016-12-31 13:31] LABS: APPEARANCE,URINE SLIGHTLY-CLOUDY; BILIRUBIN,URINE NEGATIVE (NEGATIVE); GLUCOSE, URINE NEGATIVE (NEGATIVE); KETONES,URINE NEGATIVE (NEGATIVE); LEUKOCYTE ESTERASE,URINE TRACE (NEGATIVE); NITRITE,URINE NEGATIVE (NEGATIVE); PROTEIN,URINE NEGATIVE (NEGATIVE); UROBILINOGEN,URINE NEGATIVE mg/dL (<2.0)
[2016-12-31 13:46] LABS: HEMATOCRIT 33.2 % (36.0-47.0); HEMOGLOBIN 11.5 g/dL (12.0-15.5); HGB HCT DIFFERENCE 1.3; MEAN CORPUSCULAR HGB CONC 34.7 g/dL (32.0-36.0); MEAN CORPUSCULAR VOLUME 98 fl (80-97); RED BLOOD COUNT 3.39 10^6/uL (3.72-5.28); RED CELL DISTRIBUTION WIDTH 13.6 % (11.5-14.0); WHITE BLOOD COUNT 6.9 10^3/uL (4.0-10.5)
[2016-12-31 14:06] LABS: ANION GAP 12 (5-19); BLOOD UREA NITROGEN 25 mg/dL (7-20); CALCIUM 9.6 mg/dL (8.4-10.2); CARBON DIOXIDE 28 mmol/L (22-30); CHLORIDE 102 mmol/L (98-107); CREATININE RESULT 1.65 mg/dL (0.52-1.25); GLUCOSE 88 mg/dL (75-110); PHOSPHORUS 3.9 mg/dL (2.5-4.5); POTASSIUM 4.6 mmol/L (3.6-5.0); SODIUM 141.8 mmol/L (137-145)
== END ==
LOC: OD 11:49
PROVIDERS: ATTEND Physician Assistant Medical
DX: I12.9 Hypertensive chronic kidney disease with stage 1 through stage 4 chronic kidney disease, or unspecified chronic kidney disease (principal); N18.3 Chronic kidney disease, stage 3 (moderate)
CPT/HCPCS: 36415; 80048; 81001; 83970; 84100; 85027

== ENCOUNTER → 2017-02-21 | Outpatient (CLI) | payer MEDICARE, OTHER ==
[2017-02-21 13:36] LABS: HEMATOCRIT 35.8 % (36.0-47.0); HGB HCT DIFFERENCE 0.2; MEAN CORPUSCULAR HEMOGLOBIN 33.1 pg (27.0-33.4); MEAN CORPUSCULAR HGB CONC 33.6 g/dL (32.0-36.0); MEAN CORPUSCULAR VOLUME 98 fl (80-97); RED BLOOD COUNT 3.64 10^6/uL (3.72-5.28); RED CELL DISTRIBUTION WIDTH 13.6 % (11.5-14.0); WHITE BLOOD COUNT 8.1 10^3/uL (4.0-10.5)
[2017-02-21 13:42] LABS: APPEARANCE,URINE SLIGHTLY-CLOUDY; BILIRUBIN,URINE NEGATIVE (NEGATIVE); GLUCOSE, URINE NEGATIVE (NEGATIVE); KETONES,URINE NEGATIVE (NEGATIVE); LEUKOCYTE ESTERASE,URINE SMALL (NEGATIVE); NITRITE,URINE NEGATIVE (NEGATIVE); PROTEIN,URINE NEGATIVE (NEGATIVE); URINE SPECIFIC GRAVITY 1.011; UROBILINOGEN,URINE NEGATIVE mg/dL (<2.0)
[2017-02-21 14:05] LABS: ANION GAP 11 (5-19); BLOOD UREA NITROGEN 22 mg/dL (7-20); CALCIUM 10.5 mg/dL (8.4-10.2); CARBON DIOXIDE 29 mmol/L (22-30); CHLORIDE 103 mmol/L (98-107); CREATININE RESULT 1.47 mg/dL (0.52-1.25); GLUCOSE 98 mg/dL (75-110); POTASSIUM 4.9 mmol/L (3.6-5.0); SODIUM 142.6 mmol/L (137-145)
== END ==
LOC: OD 12:57
PROVIDERS: ATTEND Physician Assistant Medical
DX: I12.9 Hypertensive chronic kidney disease with stage 1 through stage 4 chronic kidney disease, or unspecified chronic kidney disease (principal); N18.3 Chronic kidney disease, stage 3 (moderate); N39.0 Urinary tract infection, site not specified
CPT/HCPCS: 36415; 80048; 81001; 85027; 87086

== ENCOUNTER → 2017-05-31 | Outpatient (CLI) | payer MEDICARE, OTHER ==
[2017-05-31 12:27] LABS: HEMATOCRIT 33.4 % (36.0-47.0); HEMOGLOBIN 11.4 g/dL (12.0-15.5); MEAN CORPUSCULAR HEMOGLOBIN 33.4 pg (27.0-33.4); MEAN CORPUSCULAR HGB CONC 34.2 g/dL (32.0-36.0); MEAN CORPUSCULAR VOLUME 98 fl (80-97); PLATELET COUNT 341 10^3/uL (150-450); RED BLOOD COUNT 3.42 10^6/uL (3.72-5.28); RED CELL DISTRIBUTION WIDTH 13.8 % (11.5-14.0); WHITE BLOOD COUNT 8.2 10^3/uL (4.0-10.5)
[2017-05-31 12:39] LABS: APPEARANCE,URINE SLIGHTLY-CLOUDY; BILIRUBIN,URINE NEGATIVE (NEGATIVE); COLOR,URINE YELLOW; GLUCOSE, URINE NEGATIVE (NEGATIVE); KETONES,URINE NEGATIVE (NEGATIVE); LEUKOCYTE ESTERASE,URINE TRACE (NEGATIVE); NITRITE,URINE NEGATIVE (NEGATIVE); PROTEIN,URINE NEGATIVE (NEGATIVE); UROBILINOGEN,URINE NEGATIVE mg/dL (<2.0)
[2017-05-31 12:56] LABS: ANION GAP 9 (5-19); BLOOD UREA NITROGEN 35 mg/dL (7-20); CALCIUM 10.5 mg/dL (8.4-10.2); CARBON DIOXIDE 31 mmol/L (22-30); CHLORIDE 101 mmol/L (98-107); GLUCOSE 92 mg/dL (75-110); PHOSPHORUS 4.3 mg/dL (2.5-4.5); POTASSIUM 5.6 mmol/L (3.6-5.0)
== END ==
LOC: OD 11:53
PROVIDERS: ATTEND Physician Assistant Medical
DX: I12.9 Hypertensive chronic kidney disease with stage 1 through stage 4 chronic kidney disease, or unspecified chronic kidney disease (principal); N18.3 Chronic kidney disease, stage 3 (moderate); D64.9 Anemia, unspecified
CPT/HCPCS: 36415; 80048; 81001; 83970; 84100; 85027

== ENCOUNTER → 2017-06-01 | Outpatient (CLI) | payer MEDICARE, OTHER | LOC: OD 11:53 | PROVIDERS: ATTEND Physician Assistant Medical | DX: I12.9 Hypertensive chronic kidney disease with stage 1 through stage 4 chronic kidney disease, or unspecified chronic kidney disease (principal); N18.3 Chronic kidney disease, stage 3 (moderate); D64.9 Anemia, unspecified; E87.5 Hyperkalemia; E83.52 Hypercalcemia | CPT/HCPCS: 36415; 84132 ==

== ENCOUNTER → 2017-08-16 | Outpatient (CLI) | payer MEDICARE, OTHER ==
[2017-08-16 12:06] LABS: ALANINE AMINOTRANSFERASE 28 U/L (9-52); ALBUMIN 4.1 g/dL (3.5-5.0); ALKALINE PHOSPHATASE 65 U/L (38-126); ANION GAP 7 (5-19); ASPARTATE AMINO TRANSFERASE 39 U/L (14-36); BILIRUBIN,DIRECT 0.3 mg/dL (0.0-0.4); BILIRUBIN,TOTAL 0.3 mg/dL (0.2-1.3); BLOOD UREA NITROGEN 29 mg/dL (7-20); CALCIUM 10.3 mg/dL (8.4-10.2); CARBON DIOXIDE 32 mmol/L (22-30); CHLORIDE 106 mmol/L (98-107); CHOLESTEROL 130.91 mg/dL (0-200); GLUCOSE 90 mg/dL (75-110); POTASSIUM 5.5 mmol/L (3.6-5.0); SODIUM 144.8 mmol/L (137-145); TOTAL PROTEIN 7.3 g/dL (6.3-8.2); TRIGLYCERIDES 165 mg/dL (<150)
[2017-08-16 12:17] LABS: DIRECT LDL 53 mg/dL (<100)
== END ==
LOC: OD 10:46
PROVIDERS: ATTEND Internal Medicine Cardiovascular Disease
DX: E78.2 Mixed hyperlipidemia (principal); I10 Essential (primary) hypertension; R63.4 Abnormal weight loss; Z79.899 Other long term (current) drug therapy
CPT/HCPCS: 36415; 80048; 80061; 80076; 83735; 84443

== ENCOUNTER → 2017-08-23 | Outpatient (CLI) | payer MEDICARE, OTHER ==
[2017-08-23 11:54] LABS: ANION GAP 13 (5-19); BLOOD UREA NITROGEN 33 mg/dL (7-20); CALCIUM 10.5 mg/dL (8.4-10.2); CARBON DIOXIDE 25 mmol/L (22-30); CHLORIDE 106 mmol/L (98-107); GLUCOSE 96 mg/dL (75-110); POTASSIUM 4.4 mmol/L (3.6-5.0); SODIUM 144.2 mmol/L (137-145)
== END ==
LOC: LAB 10:36
PROVIDERS: ATTEND Internal Medicine Cardiovascular Disease
DX: I10 Essential (primary) hypertension (principal); Z79.899 Other long term (current) drug therapy
CPT/HCPCS: 36415; 80048

== ENCOUNTER → 2017-11-21 | Outpatient (CLI) | payer MEDICARE, OTHER ==
[2017-11-21 10:30] LABS: HEMATOCRIT 34.6 % (36.0-47.0); HEMOGLOBIN 11.6 g/dL (12.0-15.5); MEAN CORPUSCULAR HEMOGLOBIN 34.3 pg (27.0-33.4); MEAN CORPUSCULAR HGB CONC 33.7 g/dL (32.0-36.0); MEAN CORPUSCULAR VOLUME 102 fl (80-97); PLATELET COUNT 309 10^3/uL (150-450); RED BLOOD COUNT 3.39 10^6/uL (3.72-5.28); RED CELL DISTRIBUTION WIDTH 13.3 % (11.5-14.0); WHITE BLOOD COUNT 6.4 10^3/uL (4.0-10.5)
[2017-11-21 10:32] LABS: HEMATOCRIT 34.6 % (36.0-47.0); HEMOGLOBIN 11.6 g/dL (12.0-15.5); MEAN CORPUSCULAR HEMOGLOBIN 34.3 pg (27.0-33.4); MEAN CORPUSCULAR HGB CONC 33.7 g/dL (32.0-36.0); MEAN CORPUSCULAR VOLUME 102 fl (80-97); PLATELET COUNT 309 10^3/uL (150-450); RED BLOOD COUNT 3.39 10^6/uL (3.72-5.28); RED CELL DISTRIBUTION WIDTH 13.3 % (11.5-14.0); WHITE BLOOD COUNT 6.4 10^3/uL (4.0-10.5)
[2017-11-21 10:58] LABS: APPEARANCE,URINE CLEAR; BILIRUBIN,URINE NEGATIVE (NEGATIVE); COLOR,URINE YELLOW; GLUCOSE, URINE NEGATIVE (NEGATIVE); KETONES,URINE NEGATIVE (NEGATIVE); LEUKOCYTE ESTERASE,URINE NEGATIVE (NEGATIVE); NITRITE,URINE NEGATIVE (NEGATIVE); PROTEIN,URINE 30 mg/dL (NEGATIVE); URINE SPECIFIC GRAVITY 1.013; UROBILINOGEN,URINE NEGATIVE mg/dL (<2.0)
[2017-11-21 11:20] LABS: ANION GAP 9 (5-19); BLOOD UREA NITROGEN 26 mg/dL (7-20); CARBON DIOXIDE 25 mmol/L (22-30); CHLORIDE 108 mmol/L (98-107); GLUCOSE 96 mg/dL (75-110); IRON(TIBC) 51.3 ug/dL (37-170); POTASSIUM 4.1 mmol/L (3.6-5.0); SODIUM 141.9 mmol/L (137-145)
[2017-11-21 11:35] LABS: FREE T3 2.67 pg/mL (2.77-5.27); FREE T4 (FREE THYROXINE) 1.65 ng/dL (0.78-2.19)
[2017-11-21 11:49] LABS: THYROID STIMULATING HORMONE 0.05 uIU/mL (0.47-4.68)
[2017-11-21 12:01] LABS: ANION GAP 9 (5-19); BLOOD UREA NITROGEN 26 mg/dL (7-20); CARBON DIOXIDE 25 mmol/L (22-30); CHLORIDE 108 mmol/L (98-107); CHOLESTEROL 132.97 mg/dL (0-200); DIRECT LDL 51 mg/dL (<100); GLUCOSE 96 mg/dL (75-110); POTASSIUM 4.1 mmol/L (3.6-5.0); SODIUM 141.9 mmol/L (137-145); TRIGLYCERIDES 122 mg/dL (<150); VLDL CHOLESTEROL 24.4 mg/dL (10-31)
[2017-11-21 12:02] LABS: ANION GAP 9 (5-19); BLOOD UREA NITROGEN 26 mg/dL (7-20); CARBON DIOXIDE 25 mmol/L (22-30); CHLORIDE 108 mmol/L (98-107); GLUCOSE 96 mg/dL (75-110); POTASSIUM 4.1 mmol/L (3.6-5.0); SODIUM 141.9 mmol/L (137-145)
[2017-11-21 12:10] LABS: ALANINE AMINOTRANSFERASE 20 U/L (9-52); ALBUMIN 4.2 g/dL (3.5-5.0); ALKALINE PHOSPHATASE 81 U/L (38-126); ASPARTATE AMINO TRANSFERASE 25 U/L (14-36); BILIRUBIN,DIRECT 0.3 mg/dL (0.0-0.4); BILIRUBIN,TOTAL 0.4 mg/dL (0.2-1.3); TOTAL PROTEIN 7.3 g/dL (6.3-8.2)
== END ==
LOC: LAB 10:09
PROVIDERS: ATTEND Internal Medicine Cardiovascular Disease
DX: I12.9 Hypertensive chronic kidney disease with stage 1 through stage 4 chronic kidney disease, or unspecified chronic kidney disease (principal); N18.4 Chronic kidney disease, stage 4 (severe); D64.9 Anemia, unspecified; E87.5 Hyperkalemia; E03.9 Hypothyroidism, unspecified; E78.5 Hyperlipidemia, unspecified; I95.9 Hypotension, unspecified
CPT/HCPCS: 36415; 80048; 80053; 80061; 81001; 82728; 83540; 83550; 84439; 84443; 84481; 85027

== ENCOUNTER 2017-12-23 12:41 | Emergency (ER) | payer MEDICARE, OTHER ==
--- NOTE | 2017-12-23 13:21 | ER Document Report ---
ED Medical Screen (RME) - General Chief Complaint: Back Pain Stated Complaint: BACK PAIN Time Seen by Provider: 12/23/17 13:20 Mode of Arrival: Medic Information source: Patient, Relative TRAVEL OUTSIDE OF THE [place] IN LAST 30 DAYS: No - HPI Patient complains to provider of: LBP Onset: Yesterday - pt with h/o LBP and is S/P multiple surgeries for same with c/o severe pain starting this am. Denies h/o trauma - Related Data Allergies/Adverse Reactions: No Known Allergies Allergy (Verified 12/23/17 12:48) Past Medical History - Past Medical History Cardiac Medical History: Reports: Hx Hypercholesterolemia, Hx Hypertension Pulmonary Medical History: Reports: Hx Asthma, Hx COPD Endocrine Medical History: Reports: Hx Hypothyroidism Renal/ Medical History: Denies: Hx Peritoneal Dialysis Musculoskeltal Medical History: Reports Hx Arthritis Past Surgical History: Reports: Hx Abdominal Surgery, Hx Appendectomy, Hx Lumpectomy - left breast, Hx Orthopedic Surgery - back surgery x4 - Immunizations Hx Diphtheria, Pertussis, Tetanus Vaccination: Yes Physical Exam - Vital signs Vitals: Temp Pulse Resp BP Pulse Ox 98.6 F 67 16 128/62 H 99 12/23/17 12:55 12/23/17 12:55 12/23/17 12:55 12/23/17 12:55 12/23/17 12:55 Course - Vital Signs Vital signs: Temp Pulse Resp BP Pulse Ox 98.6 F 67 16 128/62 H 99 12/23/17 12:55 12/23/17 12:55 12/23/17 12:55 12/23/17 12:55 12/23/17 12:55 Doctor's Discharge - Discharge Referrals: NKECHI MOTTA MD [Primary Care Provider] - Follow up as needed
--- NOTE | 2017-12-23 14:24 | RADIOLOGY REPORT (SQ) ---
EXAM DESCRIPTION: CT LUMBAR SPINE WITHOUT COMPLETED DATE/TIME: 12/23/2017 1:55 pm REASON FOR STUDY: LBP COMPARISON: None. TECHNIQUE: Axial images acquired through the lumbar spine without intravenous contrast. Images revi ewed with lung, soft tissue and bone windows. Reconstructed coronal and sagittal MPR images reviewed . All images stored on PACS. All CT scanners at this facility use dose modulation, iterative reconstruction, and/or weight based d osing when appropriate to reduce radiation dose to as low as reasonably achievable (ALARA). [facility]: Dose Right [facility]: CareDose [facility]: Dose Right [facility]: Teradose 4D [facility]: [employer] RADIATION DOSE: mGy. LIMITATIONS: None. FINDINGS: SEGMENTATION: Normal. No transitional anatomy. ALIGNMENT: Normal. VERTEBRAL BODIES: No fractures. No dislocation. No acute findings. DISCS: Mild concentric disc bulging at L2-3 with no significant central canal or foraminal stenosis. Concentric disc bulging at L3-4 that is asymmetrical to the left with no significant central canal o r foraminal stenosis. Broad-based asymmetrical posterior disc/ osteophyte complex at L4-5 more promi nent to the left with mild left foraminal stenosis. Broad-based disc/ osteophyte complex at L5-S1 wi th no significant stenosis. PEDICLES, TRANSVERSE PROCESSES: No fractures. No dislocation. No acute findings. FACETS, POSTERIOR ELEMENTS: Laminectomy changes at multiple levels. HARDWARE: Posterior rods extend from L3-S1 with screws through the pedicles. VISUALIZED RIBS: No fractures. SOFT TISSUES: No significant or acute finding in adjacent soft tissues. OTHER: No other significant finding. IMPRESSION: Surgical changes. Multilevel disc changes as described. TECHNICAL DOCUMENTATION: JOB ID: [id number] Quality ID # [id number]: Final reports with documentation of one or more dose reduction techniques (e.g., Au tomated exposure control, adjustment of the mA and/or kV according to patient size, use of iterative reconstruction technique) 2010 [employer]- All Rights Reserved Reading location - IP/workstation name: [email or web address]
[2017-12-23 14:25] LABS: ABSOLUTE EOSINOPHILS # (AUTO) 0.2 10^3/uL (0.0-0.6); ABSOLUTE LYMPHOCYTES (AUTO) 1.2 10^3/uL (0.5-4.7); ABSOLUTE MONOCYTES (AUTO) 0.5 10^3/uL (0.1-1.4); ABSOLUTE NEUT (AUTO) 5.4 10^3/uL (1.7-8.2); BASOPHILS % (AUTO) 0.6 % (0-2); EOSINOPHILS % (AUTO) 2.5 % (0-6); HEMATOCRIT 34.2 % (36.0-47.0); HEMOGLOBIN 11.6 g/dL (12.0-15.5); LYMPHOCYTES % (AUTO) 16.6 % (13-45); MEAN CORPUSCULAR HEMOGLOBIN 34.5 pg (27.0-33.4); MEAN CORPUSCULAR VOLUME 101 fl (80-97); MONOCYTES % (AUTO) 6.8 % (3-13); PLATELET COUNT 418 10^3/uL (150-450); RED BLOOD COUNT 3.37 10^6/uL (3.72-5.28); RED CELL DISTRIBUTION WIDTH 12.9 % (11.5-14.0); SEGMENTED NEUTROPHILS % (AUTO) 73.5 % (42-78); TOTAL CELLS COUNTED % (AUTO) 100 %; WHITE BLOOD COUNT 7.3 10^3/uL (4.0-10.5)
[2017-12-23 14:43] LABS: APPEARANCE,URINE SLIGHTLY-CLOUDY; BILIRUBIN,URINE NEGATIVE (NEGATIVE); COLOR,URINE YELLOW; GLUCOSE, URINE NEGATIVE (NEGATIVE); KETONES,URINE NEGATIVE (NEGATIVE); LEUKOCYTE ESTERASE,URINE NEGATIVE (NEGATIVE); NITRITE,URINE NEGATIVE (NEGATIVE); PROTEIN,URINE NEGATIVE (NEGATIVE); URINE SPECIFIC GRAVITY 1.013; UROBILINOGEN,URINE NEGATIVE mg/dL (<2.0)
[2017-12-23 14:48] LABS: ALANINE AMINOTRANSFERASE 15 U/L (9-52); ALBUMIN 4.1 g/dL (3.5-5.0); ALKALINE PHOSPHATASE 83 U/L (38-126); ANION GAP 10 (5-19); ASPARTATE AMINO TRANSFERASE 22 U/L (14-36); BILIRUBIN,DIRECT 0.3 mg/dL (0.0-0.4); BILIRUBIN,TOTAL 0.4 mg/dL (0.2-1.3); BLOOD UREA NITROGEN 21 mg/dL (7-20); CALCIUM 9.7 mg/dL (8.4-10.2); CARBON DIOXIDE 26 mmol/L (22-30); CHLORIDE 104 mmol/L (98-107); GLUCOSE 99 mg/dL (75-110); POTASSIUM 4.1 mmol/L (3.6-5.0); SODIUM 140.4 mmol/L (137-145); TOTAL PROTEIN 7.2 g/dL (6.3-8.2)
[2017-12-23] MEDS ORDERED: FENTANYL CITRATE INJ/PF 100 MCG/2 ML AMPUL IV ONE ×3 (18:30→23:29)
[2017-12-23] MEDS ORDERED: NORMAL SALINE 1000 ML 1,000 ML IV ONE (18:30)
[2017-12-23] MEDS ORDERED: KETOROLAC TROMETHAMINE INJ/PF 30 MG/1 ML SDV IV ONE (18:30)
--- NOTE | 2017-12-23 18:30 | ER Document Report ---
ED General - General Chief Complaint: Back Pain Stated Complaint: BACK PAIN Time Seen by Provider: 12/23/17 13:20 Mode of Arrival: Medic Notes: 82-year-old female patient emergency department chief complaint of back pain. Patient states that she has had severe back pain for a long time. Followed by chronic pain management. States that over the last several days she has began to have some pain in the left lower quadrant as well as worsening back pain and some blood in her stool. Just feels wiped out. Denies any fever, chills, sweats. Denies any chest pain. Stimulator in her back. Has all of her regular medications but nothing seems to be working. TRAVEL OUTSIDE OF THE [place] IN LAST 30 DAYS: No - HPI Onset: Yesterday Onset/Duration: Gradual, Constant Quality of pain: Achy, Throbbing Severity: Moderate Pain Level: 4 Associated symptoms: Other - Bloody stools - Related Data Allergies/Adverse Reactions: No Known Allergies Allergy (Verified 12/23/17 12:48) Past Medical History - General Information source: Patient, Relative - Social History Smoking Status: Former Smoker Frequency of alcohol use: None Drug Abuse: None Lives with: Family Family History: Reviewed & Not Pertinent, COPD Patient has suicidal ideation: No Patient has homicidal ideation: No - Past Medical History Cardiac Medical History: Reports: Hx Hypercholesterolemia, Hx Hypertension Pulmonary Medical History: Reports: Hx Asthma, Hx COPD Endocrine Medical History: Reports: Hx Hypothyroidism Renal/ Medical History: Denies: Hx Peritoneal Dialysis Musculoskeletal Medical History: Reports Hx Arthritis Past Surgical History: Reports: Hx Abdominal Surgery, Hx Appendectomy, Hx Lumpectomy - left breast, Hx Orthopedic Surgery - back surgery x4 - Immunizations Hx Diphtheria, Pertussis, Tetanus Vaccination: Yes Hx Pneumococcal Vaccination: 03/14/14 Review of Systems - Review of Systems Notes: Constitutional: denies: Chills, Diaphoresis, Fever, Malaise, Weakness EENT: denies: Eye discharge, Blurred vision, Tearing, Double vision, Nose congestion, Nose discharge, Throat swelling, Mouth pain Cardiovascular: denies: Palpitations, Heart racing, Orthopnea, Dyspnea, Chest pain Respiratory: denies: Cough, Hurts to breathe, Wheezing, Shortness of breath Gastrointestinal: Denies any nausea or vomiting but does complain of abdominal pain and bloody stools. Genitourinary: denies: Burning, Dysuria, Discharge, Frequency, Flank pain, Hematuria Musculoskeletal: Complains of chronic low back pain with pain that radiates down into her legs Hematologic/Lymphatic: denies: Anemia, Easy bleeding, Easy bruising, Blood clots Neurological/Psychological: denies: Confusion, Dementia, Depression, Loss of consciousness Skin: No lesions, no masses, no skin breakdown, no abscesses Physical Exam - Vital signs Vitals: Temp Pulse Resp BP Pulse Ox 98.6 F 67 16 128/62 H 99 12/23/17 12:55 12/23/17 12:55 12/23/17 12:55 12/23/17 12:55 12/23/17 12:55 Interpretation: Normal - General General appearance: Appears well, Alert - HEENT Head: Normocephalic, Atraumatic Eyes: Normal Pupils: PERRL - Respiratory Respiratory status: No respiratory distress Chest status: Nontender Breath sounds: Normal Chest palpation: Normal - Cardiovascular Rhythm: Regular Heart sounds: Normal auscultation Murmur: No - Abdominal Inspection: Normal Distension: No distension Bowel sounds: Normal Tenderness: Nontender Organomegaly: No organomegaly - Rectal Tenderness: No Stool: Heme negative Hemorrhoids: None - Back Back: Normal, Nontender - Extremities General upper extremity: Normal inspection, Nontender, Normal color, Normal ROM , Normal temperature General lower extremity: Normal inspection, Nontender, Normal color, Normal ROM , Normal temperature, Normal weight bearing. No: Renetta's sign - Neurological Neuro grossly intact: Yes Cognition: Normal Orientation: AAOx4 [place] Coma Scale Eye Opening: Spontaneous [place] Coma Scale Verbal: Oriented [place] Coma Scale Motor: Obeys Commands [place] Coma Scale Total: 15 Speech: Normal Motor strength normal: LUE, RUE, LLE, RLE Sensory: Normal - Psychological Associated symptoms: Normal affect, Normal mood - Skin Skin Temperature: Warm Skin Moisture: Dry Skin Color: Normal Course - Re-evaluation Re-evalutation: 12/23/17 20:10 Patient initially had a lumbar CT scan ordered from triage. There is chronic findings present. I am more concerned about the belly pain consistent with a low back pain and bloody stool. Need to rule out aortic enteric fistula as an other acute pathology associated with this back pain and and reported bloody stool. Rectal exam was unremarkable and occult blood was negative. Labs are fairly unremarkable. We will give her some pain control and do a CT with IV and oral contrast to evaluate any potential intra-abdominal pathology on this 82 -year-old female with multiple medical problems. 12/23/17 20:11 Laboratory 12/23/17 12/23/17 12/23/17 13:35 13:35 13:35 WBC 7.3 RBC 3.37 L Hgb 11.6 L Hct 34.2 L MCV 101 H MCH 34.5 H MCHC 34.0 RDW 12.9 Plt Count 418 Seg Neutrophils % 73.5 Lymphocytes % 16.6 Monocytes % 6.8 Eosinophils % 2.5 Basophils % 0.6 Absolute Neutrophils 5.4 Absolute Lymphocytes 1.2 Absolute Monocytes 0.5 Absolute Eosinophils 0.2 Absolute Basophils 0.0 Sodium 140.4 Potassium 4.1 Chloride 104 Carbon Dioxide 26 Anion Gap 10 BUN 21 H Creatinine 1.52 H Est GFR ( Amer) 40 L Est GFR (Non-Af Amer) 33 L Glucose 99 Calcium 9.7 Total Bilirubin 0.4 Direct Bilirubin 0.3 Neonat Total Bilirubin Not Reportable Neonat Direct Bilirubin Not Reportable Neonat Indirect Bili Not Reportable AST 22 ALT 15 Alkaline Phosphatase 83 Total Protein 7.2 Albumin 4.1 Urine Color YELLOW Urine Appearance SLIGHTLY-CLOUDY Urine pH 5.0 Ur Specific [place] 1.013 Urine Protein NEGATIVE Urine Glucose (UA) NEGATIVE Urine Ketones NEGATIVE Urine Blood NEGATIVE Urine Nitrite NEGATIVE Urine Bilirubin NEGATIVE Urine Urobilinogen NEGATIVE Ur Leukocyte Esterase NEGATIVE Urine WBC (Auto) 0 Urine RBC (Auto) 1 U Hyaline Cast (Auto) 5 Squamous Epi Cells Auto 1 Urine Mucus (Auto) RARE Urine Ascorbic Acid NEGATIVE Stool Occult Blood 12/23/17 18:29 WBC RBC Hgb Hct MCV MCH MCHC RDW Plt Count Seg Neutrophils % Lymphocytes % Monocytes % Eosinophils % Basophils % Absolute Neutrophils Absolute Lymphocytes Absolute Monocytes Absolute Eosinophils Absolute Basophils Sodium Potassium Chloride Carbon Dioxide Anion Gap BUN Creatinine Est GFR ( Amer) Est GFR (Non-Af Amer) Glucose Calcium Total Bilirubin Direct Bilirubin Neonat Total Bilirubin Neonat Direct Bilirubin Neonat Indirect Bili AST ALT Alkaline Phosphatase Total Protein Albumin Urine Color Urine Appearance Urine pH Ur Specific Stem Urine Protein Urine Glucose (UA) Urine Ketones Urine Blood Urine Nitrite Urine Bilirubin Urine Urobilinogen Ur Leukocyte Esterase Urine WBC (Auto) Urine RBC (Auto) U Hyaline Cast (Auto) Squamous Epi Cells Auto Urine Mucus (Auto) Urine Ascorbic Acid Stool Occult Blood NEGATIVE 12/23/17 22:28 Nothing acute was seen on the lumbar spine CT scan. Based on her symptoms of having some blood in her stool and back pain I went ahead and ordered a CT abdomen and pelvis with IV contrast to assess the aorta and other pathologies. Patient does have an incidental 29 mm aneurysm just above the bifurcation. Does not appear to involve the NEVIN. There is no significant signs of mesenteric ischemia. There is no thickened bowel hernandez. No other pathology was seen. Discussed case with the radiologist and he was unable to pull the old films for comparison but I did and do not see any significant change from prior. I believe this is just an incidental finding and has nothing to do with her current back pain. Patient has chronic back pain and this is more likely the problem. At this time I am going to recommend that she follow back up with her pain management. I will give her all the information with regards to follow -up information for abdominal aneurysm. Will DC at this time in stable condition but with strict warning signs to return for any worsening symptoms or concerns, worsening GI bleeding, worsening abdominal pain or other issues. - Vital Signs Vital signs: Temp Pulse Resp BP Pulse Ox 98.2 F 70 12 164/74 H 96 12/23/17 21:50 12/23/17 21:50 12/23/17 21:50 12/23/17 21:50 12/23/17 21:50 - Laboratory Result Diagrams: 12/23/17 13:35 12/23/17 13:35 Laboratory results interpreted by me: 12/23/17 12/23/17 13:35 13:35 RBC 3.37 L Hgb 11.6 L Hct 34.2 L MCV 101 H MCH 34.5 H BUN 21 H Creatinine 1.52 H Est GFR ( Amer) 40 L Est GFR (Non-Af Amer) 33 L Discharge - Discharge Clinical Impression: Low back pain Qualifiers: Chronicity: chronic Back pain laterality: midline Sciatica presence: without sciatica Qualified Code(s): M54.5 - Low back pain; G89.29 - Other chronic pain; G89.29 - Other chronic pain Condition: Good Disposition: HOME, SELF-CARE Instructions: Low Back Pain ([facility]) Additional Instructions: Please follow-up with your regular doctor and pain management doctor. You have an incidental finding on the CT scan which was discussed. 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 In the event that you develop severe abdominal pain, rectal bleeding, fever or other issues please return immediately for further evaluation and treatment. Referrals: NKECHI MOTTA MD [EMERITUS] - Follow up as needed
--- NOTE | 2017-12-23 22:00 | RADIOLOGY REPORT (SQ) ---
EXAM DESCRIPTION: CT ABDOMEN PELVIS WITH IV CONTRAST COMPLETED DATE/TME: 12/23/2017 00:00 CLINICAL HISTORY: 82 years, Female, llq abd pain and bleeding COMPARISON: EXAM DESCRIPTION: CLINICAL HISTORY: llq abd pain and bleeding COMPARISON: TECHNIQUE: Contiguous axial images of the abdomen and pelvis were obtained after the administration of intravenous contrast followed by reconstruction images.This exam was performed according to our departmental dose-optimization program, which includes automated exposure control, adjustment of the mA and/or kV according to patient size and/or use of iterative reconstruction technique. FINDINGS: 29 mm ascending abdominal aortic aneurysm is present. There is no hydronephrosis. The gallbladder is unremarkable. The left adrenal is poorly seen. There are punctate calcifications of the pancreas. No significant free fluid. No free air. No bowel obstruction.Pulmonary lucencies suggest COPD/emphysema. There is no stranding of the mesenteric fat. No evidence of periappendiceal inflammation. IMPRESSION: 29 mm abdominal aortic aneurysm. Follow-up is recommended every five years. No acute abnormality. No acute intra-abdominal abnormality TECHNIQUE: Images stored on PACS. All CT scanners at this facility use dose modulation, iterative reconstruction, and/or weight based dosing when appropriate to reduce radiation dose to as low as reasonably achievable (ALARA). [facility]: Dose Right [facility]: CareDose [facility]: Dose Right [facility]: Teradose 4D [facility]: [email or web address] LIMITATIONS: None. FINDINGS: IMPRESSION: TECHNICAL DOCUMENTATION: Quality ID # [id number]: Final reports with documentation of one or more dose reduction techniques (e.g., Automated exposure control, adjustment of the mA and/or kV according to patient size, use of iterative reconstruction technique) 2010 [employer]- All Rights Reserved
[2017-12-23 23:36] VITALS: BP 182/66
== END 2017-12-23 23:44 | disposition home or self-care (01) ==
LOC: ER 12:41
DX: M54.5 Low back pain (principal); G89.29 Other chronic pain; I71.4 Abdominal aortic aneurysm, without rupture; R10.32 Left lower quadrant pain; K92.1 Melena; I10 Essential (primary) hypertension; J44.9 Chronic obstructive pulmonary disease, unspecified; Z96.89 Presence of other specified functional implants; Z87.891 Personal history of nicotine dependence; Z90.49 Acquired absence of other specified parts of digestive tract
CPT/HCPCS: 96376; 99284; 96361; 96374; 36415; 85025; 82272; 80053; 81001; 72131; 74177; J3010; J7030